=== PATIENT | male | born 1980 | race Caucasian/White ===

== ENCOUNTER 2018-03-09 07:40 | Emergency (ER) | payer SELFPAY ==
[~2018-03-09] VITALS: Ht 172.7 cm; Wt 92.5 kg
--- NOTE | 2018-03-09 07:42 | NUR ---
PT TAKEN IN WHEELCHAIR TO ER BED 04
[2018-03-09 07:46] VITALS: BP 145/100
[2018-03-09] MEDS ORDERED: ONDANSETRON 4 MG ODT PO ONE (07:50)
--- NOTE | 2018-03-09 07:55 | NUR ---
PT BIB BY SELF, C/O NAUSEA, DENIES VOMITING, CHEST PAIN AT THIS TIME. PT. STATES THAT FELT HEART RACE, FELT IF SOMETHING WAS STUCK IN HIS THROAT. WENT TO PHARMACY TO TAKE BP, REPORTS BP 189/98, RETOOK 145/95, RETOOK 127/85. REPORTS HAVING SWEATS. HX: A FIB 6 YEARS AGO RX: NO RX
--- NOTE | 2018-03-09 08:10 | NUR ---
PT REPORTS VOMITING, REPORTED TO ANGELINA.
[2018-03-09 08:21] VITALS: BP 139/93
== END 2018-03-09 08:21 | disposition home or self-care (01) ==
LOC: MED 07:40
DX: R00.2 Palpitations (principal); R11.0 Nausea; Z90.49 Acquired absence of other specified parts of digestive tract
CPT/HCPCS: 93005; 99283; Q0162